=== PATIENT | male | born 1940 | race Caucasian/White ===

== ENCOUNTER 2020-03-09 04:23 | Inpatient (IN) ==
[2020-03-09 05:15] LABS: Hematocrit 24 % (42-52); Hemoglobin 7.5 g/dL (14.0-18.0); Mean Corpuscular HGB Conc 32 g/dL (31-36); Mean Corpuscular Hemoglobin 27 pg (27-31); Mean Corpuscular Volume 85 fL (80-94); Mean Platelet Volume 9.3 fL (7.4-10.4); Platelet Count 237 10^3/uL (150-450); Red Blood Count 2.76 10^6 /uL (4.18-5.48); Red Cell Distribution Width 17 % (10-15); White Blood Count 19.6 10^3/uL (3.5-10.8)
[2020-03-09 05:18] LABS: ABS Basophils 0.1 10^3/ul (0-0.2); ABS Lymphocytes 1.6 10^3/ul (1.0-4.8); ABS Monocytes 2.3 10^3/ul (0-0.8); ABS Neutrophils 15.5 10^3/ul (1.5-7.7); Lymphocyte % 8.3 %
[2020-03-09 05:33] LABS: ALT 18 U/L (7-52); AST 23 U/L (13-39); Albumin 3.1 g/dL (3.2-5.2); Alkaline Phosphatase 66 U/L (34-104); Anion Gap 9 mmol/L (2-11); BUN/Creatinine Ratio 17.2 (8-20); Blood Urea Nitrogen 33 mg/dL (6-24); CO2 Carbon Dioxide 22 mmol/L (22-32); Chloride 104 mmol/L (101-111); EGFR African American 41.1 (>60); Globulin 3.2 g/dL (2-4); Glucose 96 mg/dL (70-100); Magnesium 1.5 mg/dL (1.9-2.7); Potassium 3.9 mmol/L (3.5-5.0); Sodium 135 mmol/L (135-145); Total Protein 6.3 g/dL (6.4-8.9)
[2020-03-09] MEDS ORDERED: Furosemide 40 mg/4 ml IV VIAL IV SLOW PU ONE (05:34)
[2020-03-09 05:37] LABS: Troponin I 0.05 ng/mL (<0.03)
[2020-03-09] MEDS ORDERED: cefTRIAXone 1 gm/50 mL NS BAG 1 GM/50 ML BAG IV ONE (05:39)
[2020-03-09 05:48] LABS: TSH Ultra Thyroid Stim Horm 2.68 mcIU/mL (0.34-5.60)
[2020-03-09] MEDS ORDERED: Diltiazem IV push/loading dose 5 MG/ML 5 ML vial (25 mg) IV SLOW PU ONE ×2 (07:40→09:37)
[2020-03-09] MEDS ORDERED: Diltiazem IV BAG D5W Premix 125 MG/125 ML BAG IV SCH (08:00)
[2020-03-09] MEDS ORDERED: Irbesartan 150 mg TAB (NF) PO SCH (09:00)
[2020-03-09 09:39] LABS: Urine Appearance Clear; Urine Bilirubin Negative (Negative); Urine Blood 2+ (Negative); Urine Color Yellow; Urine Glucose Negative (Negative); Urine Ketones Negative (Negative); Urine Nitrite Negative (Negative); Urine Protein Negative (Negative); Urine Specific Gravity 1.008 (1.010-1.030); Urine Urobilinogen Negative (Negative)
[2020-03-09 09:49] LABS: Urine Bacteria Absent (Absent); Urine Red Blood Cell Trace(0-2/hpf) (Absent); Urine White Blood Cell Trace(0-5/hpf) (Absent)
[2020-03-09 09:56] LABS: Hematocrit 24 % (42-52)
[2020-03-09 10:05] LABS: Urine Color Red
[2020-03-09 10:06] LABS: Urine Appearance Cloudy; Urine Specific Gravity 1.008 (1.010-1.030)
[2020-03-09 10:11] LABS: Urine Bacteria Absent (Absent); Urine Red Blood Cell 3+(>10/hpf) (Absent); Urine White Blood Cell 2+(11-20/hpf) (Absent)
[2020-03-09] MEDS ORDERED: Albuterol HFA INHALER 8 gm MDI INH PRN (14:21)
[2020-03-09 15:10] LABS: Hematocrit 25 % (42-52); Hemoglobin 7.8 g/dL (14.0-18.0); Mean Corpuscular HGB Conc 32 g/dL (31-36); Mean Corpuscular Hemoglobin 27 pg (27-31); Mean Corpuscular Volume 86 fL (80-94); Platelet Count 255 10^3/uL (150-450); Red Blood Count 2.85 10^6 /uL (4.18-5.48); Red Cell Distribution Width 17 % (10-15); White Blood Count 19.4 10^3/uL (3.5-10.8)
[2020-03-09 15:14] LABS: ABS Basophils 0.1 10^3/ul (0-0.2); ABS Lymphocytes 2.2 10^3/ul (1.0-4.8); ABS Monocytes 2.5 10^3/ul (0-0.8); ABS Neutrophils 14.5 10^3/ul (1.5-7.7); Lymphocyte % 11.6 %
[2020-03-09 15:20] LABS: Activated Partial Thrombo Time 31.4 seconds (26.0-38.0); INR 2.07 (0.82-1.09)
[2020-03-09 15:35] LABS: ALT 17 U/L (7-52); AST 24 U/L (13-39); Albumin 3.1 g/dL (3.2-5.2); Alkaline Phosphatase 61 U/L (34-104); Anion Gap 7 mmol/L (2-11); BUN/Creatinine Ratio 18.1 (8-20); Blood Urea Nitrogen 33 mg/dL (6-24); CO2 Carbon Dioxide 25 mmol/L (22-32); Calcium 8.1 mg/dL (8.6-10.3); Chloride 104 mmol/L (101-111); EGFR African American 43.7 (>60); EGFR Non-African American 36.1 (>60); Globulin 3.1 g/dL (2-4); Glucose 93 mg/dL (70-100); Magnesium 1.5 mg/dL (1.9-2.7); Phosphorus 4.8 mg/dL (2.5-5.0); Potassium 4.2 mmol/L (3.5-5.0); Sodium 136 mmol/L (135-145); Total Protein 6.2 g/dL (6.4-8.9)
[2020-03-09 15:44] LABS: Troponin I 0.04 ng/mL (<0.03)
[2020-03-09] MEDS ORDERED: Influenza VAC *QUAD* 2020-21* 0.5 ML SYRINGE IM ONE (18:00)
[2020-03-09] MEDS ORDERED: Furosemide 20 mg/2 ml IV VIAL IV ONE (18:21)
[2020-03-09] MEDS: Diltiazem IV BAG D5W Premix 125 MG/125 ML BAG IV SCH (21:01)
[2020-03-09] MEDS: cefTRIAXone 1 gm/50 mL NS BAG 1 GM/50 ML BAG IVPB SCH ×2 (21:42→21:43)
[2020-03-09] MEDS: Nystatin TOP POWDER 15 GM BTL TOPICAL SCH (21:43)
[2020-03-09] MEDS: DOXYcycline 100 MG in NS 0.9% 250 ml 250 ML IVPB SCH (22:21)
[2020-03-10 00:24] LABS: Hematocrit 24 % (42-52); Hemoglobin 7.6 g/dL (14.0-18.0)
[2020-03-10 05:44] LABS: Hematocrit 23 % (42-52); Hemoglobin 7.5 g/dL (14.0-18.0); Mean Corpuscular HGB Conc 32 g/dL (31-36); Mean Corpuscular Hemoglobin 28 pg (27-31); Mean Corpuscular Volume 87 fL (80-94); Mean Platelet Volume 9.3 fL (7.4-10.4); Platelet Count 228 10^3/uL (150-450); Red Blood Count 2.68 10^6 /uL (4.18-5.48); Red Cell Distribution Width 17 % (10-15); White Blood Count 16.3 10^3/uL (3.5-10.8)
[2020-03-10 06:01] LABS: Albumin 2.7 g/dL (3.2-5.2); Albumin/Globulin Ratio 0.9 (1-3); BUN/Creatinine Ratio 21.3 (8-20); EGFR African American 47.6 (>60); EGFR Non-African American 39.3 (>60); Globulin 3.1 g/dL (2-4); Magnesium 1.5 mg/dL (1.9-2.7); Potassium 4.1 mmol/L (3.5-5.0); Total Bilirubin 0.3 mg/dL (0.2-1.0); Total Protein 5.8 g/dL (6.4-8.9)
[2020-03-10] MEDS ORDERED: Magnesium Sulf 4 GM/100 ML IV 4,000 MG/100 ML BAG IVPB ONE (08:09)
[2020-03-10 08:18] LABS: ABS Basophils 0.1 10^3/ul (0-0.2); ABS Eosinophils 0.1 10^3/ul (0-0.6); ABS Lymphocytes 1.7 10^3/ul (1.0-4.8); ABS Monocytes 2.2 10^3/ul (0-0.8); ABS Neutrophils 12.2 10^3/ul (1.5-7.7); Eosinophil % 0.4 %; Lymphocyte % 10.4 %
[2020-03-10] MEDS: cefTRIAXone 1 gm/50 mL NS BAG 1 GM/50 ML BAG IVPB SCH ×2 (08:35→20:56)
[2020-03-10] MEDS ORDERED: Furosemide 40 mg/4 ml IV VIAL IV ONE (08:36)
[2020-03-10] MEDS: Diltiazem IV BAG D5W Premix 125 MG/125 ML BAG IV SCH (09:08)
[2020-03-10] MEDS: DOXYcycline 100 MG in NS 0.9% 250 ml 250 ML IVPB SCH ×2 (09:12→21:41)
[2020-03-10] MEDS: Nystatin TOP POWDER 15 GM BTL TOPICAL SCH ×3 (09:26→20:58)
[2020-03-10 11:11] LABS: INR 1.74 (0.82-1.09)
[2020-03-10] MEDS ORDERED: fentaNYL 100 mcg/2 ml 50 MCG/ML VIAL ONE (15:23)
[2020-03-10] MEDS ORDERED: Heparin 2 UNITS/ML 1000 mls 1,000 ML IV ONE (15:40)
[2020-03-10] MEDS ORDERED: NS 0.9% 500 ML BAG IV ONE (16:00)
[2020-03-11 05:12] LABS: Hematocrit 24 % (42-52); Hemoglobin 7.8 g/dL (14.0-18.0); Mean Corpuscular HGB Conc 33 g/dL (31-36); Mean Corpuscular Hemoglobin 28 pg (27-31); Mean Corpuscular Volume 86 fL (80-94); Mean Platelet Volume 8.9 fL (7.4-10.4); Platelet Count 258 10^3/uL (150-450); Red Blood Count 2.76 10^6 /uL (4.18-5.48); Red Cell Distribution Width 17 % (10-15); White Blood Count 15.1 10^3/uL (3.5-10.8)
[2020-03-11 05:29] LABS: Albumin 2.7 g/dL (3.2-5.2); Albumin/Globulin Ratio 0.8 (1-3); BUN/Creatinine Ratio 22.2 (8-20); Calcium 7.9 mg/dL (8.6-10.3); EGFR African American 45.4 (>60); EGFR Non-African American 37.5 (>60); Globulin 3.2 g/dL (2-4); Magnesium 1.9 mg/dL (1.9-2.7); Potassium 4.1 mmol/L (3.5-5.0); Total Bilirubin 0.3 mg/dL (0.2-1.0); Total Protein 5.9 g/dL (6.4-8.9)
[2020-03-11 06:39] LABS: ABS Basophils 0.2 10^3/ul (0-0.2); ABS Eosinophils 0.2 10^3/ul (0-0.6); ABS Lymphocytes 1.6 10^3/ul (1.0-4.8); ABS Monocytes 1.4 10^3/ul (0-0.8); ABS Neutrophils 11.7 10^3/ul (1.5-7.7); Eosinophil % 1.3 %; Lymphocyte % 10.6 %
[2020-03-11] MEDS: cefTRIAXone 1 gm/50 mL NS BAG 1 GM/50 ML BAG IVPB SCH (09:14)
[2020-03-11] MEDS: Nystatin TOP POWDER 15 GM BTL TOPICAL SCH ×3 (09:20→21:16)
[2020-03-11 18:32] LABS: Body Fluid Source Pleural Fluid
[2020-03-11 19:35] LABS: Body Fluid Mono 54 %; Body Fluid Other Cells 49
[2020-03-11] MEDS ORDERED: Polyethylene Glycol 3350 17 GM PACKET PO PRN (21:36)
[2020-03-11] MEDS ORDERED: Magnesium Hydroxide LIQ 30 ML UDC PO PRN (21:36)
[2020-03-12 07:07] LABS: ABS Eosinophils 0.2 10^3/ul (0-0.6); ABS Lymphocytes 1.1 10^3/ul (1.0-4.8); ABS Neutrophils 7.3 10^3/ul (1.5-7.7); Eosinophil % 2.3 %; Hematocrit 22 % (42-52); Hemoglobin 7.4 g/dL (14.0-18.0); Lymphocyte % 11.7 %; Mean Corpuscular HGB Conc 34 g/dL (31-36); Mean Corpuscular Hemoglobin 29 pg (27-31); Mean Corpuscular Volume 85 fL (80-94); Mean Platelet Volume 8.9 fL (7.4-10.4); Platelet Count 228 10^3/uL (150-450); Red Blood Count 2.58 10^6 /uL (4.18-5.48); Red Cell Distribution Width 16 % (10-15); White Blood Count 9.7 10^3/uL (3.5-10.8)
[2020-03-12 07:26] LABS: Albumin 2.5 g/dL (3.2-5.2); Albumin/Globulin Ratio 0.8 (1-3); BUN/Creatinine Ratio 25.3 (8-20); Calcium 8.2 mg/dL (8.6-10.3); EGFR African American 47.3 (>60); EGFR Non-African American 39.1 (>60); Globulin 3.1 g/dL (2-4); Magnesium 1.7 mg/dL (1.9-2.7); Potassium 3.9 mmol/L (3.5-5.0); Total Bilirubin 0.3 mg/dL (0.2-1.0); Total Protein 5.6 g/dL (6.4-8.9)
[2020-03-12] MEDS: Magnesium Hydroxide LIQ 30 ML UDC PO SCH ×2 (09:27→20:36)
[2020-03-12] MEDS: Nystatin TOP POWDER 15 GM BTL TOPICAL SCH ×3 (09:33→20:37)
[2020-03-12] MEDS ORDERED: KCL 10 MEQ/100 ML IVPREMIX 100 ml BAG IVPB ONE (12:51)
[2020-03-12] MEDS ORDERED: KCL premix 10 MEQ/50 ML x 1 TIME IV ONE (13:00)
[2020-03-12] MEDS ORDERED: Metoprolol Tartrate 5 mg VIAL 5 ml VIAL (1 mg/ml) IV ONE (20:28)
[2020-03-12] MEDS: Senna TAB 8.6 mg TAB PO PRN (20:36)
[2020-03-13] MEDS: Magnesium Hydroxide LIQ 30 ML UDC PO SCH (08:03)
[2020-03-13] MEDS: Nystatin TOP POWDER 15 GM BTL TOPICAL SCH ×3 (08:03→21:06)
[2020-03-13 09:07] LABS: ABS Basophils 0.1 10^3/ul (0-0.2); ABS Eosinophils 0.3 10^3/ul (0-0.6); ABS Lymphocytes 1.4 10^3/ul (1.0-4.8); ABS Monocytes 0.9 10^3/ul (0-0.8); ABS Neutrophils 6.3 10^3/ul (1.5-7.7); Eosinophil % 2.8 %; Hematocrit 24 % (42-52); Hemoglobin 7.8 g/dL (14.0-18.0); Lymphocyte % 15.5 %; Mean Corpuscular HGB Conc 32 g/dL (31-36); Mean Corpuscular Hemoglobin 28 pg (27-31); Mean Corpuscular Volume 86 fL (80-94); Mean Platelet Volume 8.1 fL (7.4-10.4); Platelet Count 281 10^3/uL (150-450); Red Blood Count 2.82 10^6 /uL (4.18-5.48); Red Cell Distribution Width 17 % (10-15); White Blood Count 8.9 10^3/uL (3.5-10.8)
[2020-03-13 09:26] LABS: ALT 13 U/L (7-52); AST 19 U/L (13-39); Albumin 2.8 g/dL (3.2-5.2); Albumin/Globulin Ratio 0.9 (1-3); Alkaline Phosphatase 63 U/L (34-104); Anion Gap 4 mmol/L (2-11); BUN/Creatinine Ratio 28.2 (8-20); Blood Urea Nitrogen 40 mg/dL (6-24); CO2 Carbon Dioxide 29 mmol/L (22-32); Calcium 8.7 mg/dL (8.6-10.3); Chloride 105 mmol/L (101-111); EGFR African American 58.2 (>60); EGFR Non-African American 48.1 (>60); Globulin 3.2 g/dL (2-4); Glucose 108 mg/dL (70-100); Magnesium 1.7 mg/dL (1.9-2.7); Sodium 138 mmol/L (135-145)
[2020-03-13] MEDS ORDERED: Magnesium Sulfate 2 gm BAG 2 GM/50 ML BAG IVPB ONE (10:38)
[2020-03-13 15:49] LABS: Fluid Type, Glucose PLEURAL; Glucose, BF 106 mg/dL
[2020-03-13 15:50] LABS: Fluid Type, Amylase PLEURAL
[2020-03-13 15:53] LABS: Lactate Dehydrogenase, BF 117 U/L
[2020-03-13 16:07] LABS: Fluid Type, Protein, Total PLEURAL
[2020-03-13 17:16] LABS: Total Iron Binding Capacity 258 mcg/dL (250-450); Transferrin 184 mg/dL (203-362)
[2020-03-13 17:38] LABS: Ferritin 64.4 ng/mL (24-336)
[2020-03-13 17:41] LABS: Folate 6.26 ng/mL (>3.99)
[2020-03-13 17:42] LABS: Vitamin B12 494 pg/mL (180-914)
[2020-03-13 17:46] LABS: % Iron Saturation 8 % (15-55); Iron < 20 ug/dL (50-212); Unsaturated Iron Binding < 243 ug/dL
[2020-03-13] MEDS: Albuterol/Ipratropium NEB.SOL (2.5/0.5 MG) 3 ML NEB.SOLN INH SCH ×2 (19:21→23:36)
[2020-03-13] MEDS: Senna TAB 8.6 mg TAB PO PRN (21:04)
[2020-03-14] MEDS: Albuterol/Ipratropium NEB.SOL (2.5/0.5 MG) 3 ML NEB.SOLN INH SCH ×2 (03:13→08:07)
[2020-03-14 05:48] LABS: ABS Eosinophils 0.3 10^3/ul (0-0.6); ABS Lymphocytes 1.6 10^3/ul (1.0-4.8); ABS Neutrophils 6.5 10^3/ul (1.5-7.7); Hematocrit 23 % (42-52); Hemoglobin 7.6 g/dL (14.0-18.0); Lymphocyte % 16.8 %; Mean Corpuscular HGB Conc 33 g/dL (31-36); Mean Corpuscular Hemoglobin 28 pg (27-31); Mean Corpuscular Volume 85 fL (80-94); Mean Platelet Volume 7.9 fL (7.4-10.4); Platelet Count 261 10^3/uL (150-450); Red Blood Count 2.71 10^6 /uL (4.18-5.48); Red Cell Distribution Width 17 % (10-15); White Blood Count 9.4 10^3/uL (3.5-10.8)
[2020-03-14 06:10] LABS: Albumin 2.7 g/dL (3.2-5.2); Albumin/Globulin Ratio 0.8 (1-3); BUN/Creatinine Ratio 30.5 (8-20); Calcium 8.2 mg/dL (8.6-10.3); EGFR African American 63.9 (>60); EGFR Non-African American 52.8 (>60); Globulin 3.2 g/dL (2-4); Magnesium 1.9 mg/dL (1.9-2.7); Potassium 4.7 mmol/L (3.5-5.0); Total Bilirubin 0.3 mg/dL (0.2-1.0); Total Protein 5.9 g/dL (6.4-8.9)
[2020-03-14] MEDS ORDERED: Albuterol/Ipratropium NEB.SOL (2.5/0.5 MG) 3 ML NEB.SOLN INH PRN ×2 (08:08→09:29)
[2020-03-14] MEDS: Nystatin TOP POWDER 15 GM BTL TOPICAL SCH ×3 (08:49→20:02)
[2020-03-14] MEDS ORDERED: Iron Sucrose 200 MG in NS 0.9% 100 ml BAG 100 ML IVPB ONE (14:00)
[2020-03-15] MEDS ORDERED: Metoprolol Tartrate 5 mg VIAL 5 ml VIAL (1 mg/ml) IV ONE (03:19)
[2020-03-15 07:11] LABS: Calcium 8.4 mg/dL (8.6-10.3); EGFR African American 63.9 (>60); EGFR Non-African American 52.8 (>60); Potassium 4.5 mmol/L (3.5-5.0)
[2020-03-15] MEDS ORDERED: Iron Sucrose 200 MG in NS 0.9% 100 ml BAG 100 ML IVPB ONE (08:00)
[2020-03-15] MEDS: Nystatin TOP POWDER 15 GM BTL TOPICAL SCH ×3 (08:34→20:41)
[2020-03-15 11:39] LABS: Fluid Type: PLEURAL
[2020-03-16 06:28] LABS: ABS Basophils 0.1 10^3/ul (0-0.2); ABS Eosinophils 0.2 10^3/ul (0-0.6); ABS Lymphocytes 2.2 10^3/ul (1.0-4.8); ABS Monocytes 1.2 10^3/ul (0-0.8); ABS Neutrophils 7.6 10^3/ul (1.5-7.7); Eosinophil % 2.1 %; Hematocrit 24 % (42-52); Hemoglobin 7.8 g/dL (14.0-18.0); Lymphocyte % 19.3 %; Mean Corpuscular HGB Conc 33 g/dL (31-36); Mean Corpuscular Hemoglobin 28 pg (27-31); Mean Corpuscular Volume 86 fL (80-94); Mean Platelet Volume 8.2 fL (7.4-10.4); Platelet Count 275 10^3/uL (150-450); Red Blood Count 2.73 10^6 /uL (4.18-5.48); Red Cell Distribution Width 17 % (10-15); White Blood Count 11.3 10^3/uL (3.5-10.8)
[2020-03-16 06:47] LABS: BUN/Creatinine Ratio 27.9 (8-20); Calcium 8.6 mg/dL (8.6-10.3); EGFR Non-African American 53.7 (>60); Potassium 4.5 mmol/L (3.5-5.0)
[2020-03-16] MEDS ORDERED: Metoprolol Tartrate 5 mg VIAL 5 ml VIAL (1 mg/ml) IV ONE ×2 (07:52→17:22)
[2020-03-16] MEDS: Nystatin TOP POWDER 15 GM BTL TOPICAL SCH ×3 (08:30→19:47)
[2020-03-17 06:25] LABS: Hematocrit 23 % (42-52); Hemoglobin 7.4 g/dL (14.0-18.0); Mean Corpuscular HGB Conc 32 g/dL (31-36); Mean Corpuscular Hemoglobin 28 pg (27-31); Mean Corpuscular Volume 87 fL (80-94); Mean Platelet Volume 8.1 fL (7.4-10.4); Platelet Count 279 10^3/uL (150-450); Red Blood Count 2.66 10^6 /uL (4.18-5.48); Red Cell Distribution Width 16 % (10-15); White Blood Count 12.9 10^3/uL (3.5-10.8)
[2020-03-17 06:36] LABS: Calcium 8.8 mg/dL (8.6-10.3); Potassium 4.9 mmol/L (3.5-5.0)
[2020-03-17 06:41] LABS: BUN/Creatinine Ratio 30.6 (8-20); EGFR African American 62.2 (>60); EGFR Non-African American 51.4 (>60)
[2020-03-17 06:43] LABS: ABS Basophils 0.1 10^3/ul (0-0.2); ABS Eosinophils 0.2 10^3/ul (0-0.6); ABS Lymphocytes 2.2 10^3/ul (1.0-4.8); ABS Monocytes 1.3 10^3/ul (0-0.8); ABS Neutrophils 8.6 10^3/ul (1.5-7.7); Eosinophil % 1.3 %; Lymphocyte % 17.9 %
[2020-03-17] MEDS: Nystatin TOP POWDER 15 GM BTL TOPICAL SCH ×3 (07:50→19:34)
[2020-03-17] MEDS: Metoprolol Tartrate 5 mg VIAL 5 ml VIAL (1 mg/ml) IV PRN ×2 (17:39→19:33)
[2020-03-18] MEDS: Metoprolol Tartrate 5 mg VIAL 5 ml VIAL (1 mg/ml) IV PRN (04:04)
[2020-03-18] MEDS: Nystatin TOP POWDER 15 GM BTL TOPICAL SCH ×3 (08:18→20:43)
[2020-03-18 11:51] LABS: Hematocrit 24 % (42-52); Hemoglobin 7.7 g/dL (14.0-18.0); Mean Corpuscular HGB Conc 32 g/dL (31-36); Mean Corpuscular Hemoglobin 28 pg (27-31); Mean Corpuscular Volume 87 fL (80-94); Mean Platelet Volume 8.1 fL (7.4-10.4); Platelet Count 332 10^3/uL (150-450); Red Blood Count 2.76 10^6 /uL (4.18-5.48); Red Cell Distribution Width 16 % (10-15); White Blood Count 15.7 10^3/uL (3.5-10.8)
[2020-03-18 12:10] LABS: BUN/Creatinine Ratio 29.9 (8-20); C Reactive Protein 67.77 mg/L (<8.01); Calcium 8.5 mg/dL (8.6-10.3); EGFR African American 57.3 (>60); EGFR Non-African American 47.3 (>60)
[2020-03-18 12:18] LABS: Potassium 5.3 mmol/L (3.5-5.0)
[2020-03-18 13:09] LABS: ABS Basophils 0.1 10^3/ul (0-0.2); ABS Lymphocytes 2.5 10^3/ul (1.0-4.8); ABS Monocytes 1.7 10^3/ul (0-0.8); ABS Neutrophils 11.4 10^3/ul (1.5-7.7); Eosinophil % 0.1 %; Lymphocyte % 16.2 %; Nucleated Red Blood Cells % 0.1
[2020-03-18] MEDS ORDERED: Furosemide 40 mg/4 ml IV VIAL IV ONE (16:40)
[2020-03-18] MEDS ORDERED: NS 0.9% 250 ml 250 ML IV ONE (18:20)
[2020-03-18] MEDS ORDERED: Meropenem 1 GM PREMIX 1 GM/50 ML BAG IV SCH ×2 (20:00→22:00)
[2020-03-19 00:57] LABS: Urine Appearance Cloudy; Urine Bilirubin Negative (Negative); Urine Blood 3+ (Negative); Urine Color Yellow; Urine Glucose Negative (Negative); Urine Ketones Negative (Negative); Urine Nitrite Negative (Negative); Urine Protein 1+(30 mg/dL) (Negative); Urine Specific Gravity 1.009 (1.010-1.030); Urine Urobilinogen Negative (Negative)
[2020-03-19 01:33] LABS: Urine Bacteria 1+ (Absent); Urine Red Blood Cell 3+(>10/hpf) (Absent); Urine White Blood Cell 3+(>20/hpf) (Absent)
[2020-03-19] MEDS: Meropenem 1 GM PREMIX 1 GM/50 ML BAG IV SCH ×3 (01:33→17:34)
[2020-03-19 05:57] LABS: Hematocrit 25 % (42-52); Hemoglobin 8.3 g/dL (14.0-18.0); Mean Corpuscular HGB Conc 33 g/dL (31-36); Mean Corpuscular Hemoglobin 28 pg (27-31); Mean Corpuscular Volume 86 fL (80-94); Mean Platelet Volume 8.3 fL (7.4-10.4); Platelet Count 296 10^3/uL (150-450); Red Blood Count 2.93 10^6 /uL (4.18-5.48); Red Cell Distribution Width 17 % (10-15); White Blood Count 14.9 10^3/uL (3.5-10.8)
[2020-03-19 06:15] LABS: BUN/Creatinine Ratio 28.3 (8-20); C Reactive Protein 82.12 mg/L (<8.01); Calcium 8.6 mg/dL (8.6-10.3); EGFR African American 44.3 (>60); EGFR Non-African American 36.6 (>60); Magnesium 1.3 mg/dL (1.9-2.7)
[2020-03-19 06:18] LABS: Potassium 5.3 mmol/L (3.5-5.0)
[2020-03-19 07:17] LABS: ABS Lymphocytes 2.3 10^3/ul (1.0-4.8); ABS Monocytes 1.8 10^3/ul (0-0.8); ABS Neutrophils 10.7 10^3/ul (1.5-7.7); Eosinophil % 0.1 %; Lymphocyte % 15.4 %; Nucleated Red Blood Cells % 0.1
[2020-03-19] MEDS: Nystatin TOP POWDER 15 GM BTL TOPICAL SCH ×3 (08:36→20:45)
[2020-03-19] MEDS ORDERED: Magnesium Sulf 4 GM/100 ML IV 4,000 MG/100 ML BAG IVPB ONE (14:30)
[2020-03-20] MEDS: Meropenem 1 GM PREMIX 1 GM/50 ML BAG IV SCH ×3 (01:33→21:23)
[2020-03-20 07:49] LABS: BUN/Creatinine Ratio 28.9 (8-20); Calcium 8.8 mg/dL (8.6-10.3); EGFR African American 41.6 (>60); EGFR Non-African American 34.4 (>60); Magnesium 1.9 mg/dL (1.9-2.7)
[2020-03-20 07:55] LABS: Potassium 5.5 mmol/L (3.5-5.0)
[2020-03-20 08:07] LABS: ABS Eosinophils 0.1 10^3/ul (0-0.6); ABS Monocytes 1.6 10^3/ul (0-0.8); ABS Neutrophils 9.2 10^3/ul (1.5-7.7); Eosinophil % 0.8 %; Hematocrit 27 % (42-52); Hemoglobin 8.6 g/dL (14.0-18.0); Lymphocyte % 15.1 %; Mean Corpuscular HGB Conc 33 g/dL (31-36); Mean Corpuscular Hemoglobin 29 pg (27-31); Mean Corpuscular Volume 88 fL (80-94); Mean Platelet Volume 8.9 fL (7.4-10.4); Nucleated Red Blood Cells % 0.1; Platelet Count 280 10^3/uL (150-450); Red Blood Count 3.04 10^6 /uL (4.18-5.48); Red Cell Distribution Width 17 % (10-15); White Blood Count 12.9 10^3/uL (3.5-10.8)
[2020-03-20] MEDS ORDERED: Sodium Polystyrene ORAL.SUSP 15 GM/60 ML BTL PO ONE (08:33)
[2020-03-20] MEDS: Nystatin TOP POWDER 15 GM BTL TOPICAL SCH ×3 (09:21→21:38)
[2020-03-20] MEDS ORDERED: Iron Sucrose 20 MG/ML 5 ML VIAL IV PUSH ONE (11:31)
[2020-03-20] MEDS ORDERED: Iron Sucrose 200 MG in NS 0.9% 100 ml IVPB ONE (12:00)
[2020-03-20] MEDS: Heparin 5000 UNITS/ML 1 mL VIAL SUBCUT SCH ×2 (13:11→21:23)
[2020-03-20 15:33] LABS: BUN/Creatinine Ratio 29.4 (8-20); EGFR African American 42.4 (>60)
[2020-03-20 15:35] LABS: Potassium 5.2 mmol/L (3.5-5.0)
[2020-03-21 05:57] LABS: Hematocrit 26 % (42-52); Hemoglobin 8.5 g/dL (14.0-18.0); Mean Corpuscular HGB Conc 33 g/dL (31-36); Mean Corpuscular Hemoglobin 28 pg (27-31); Mean Corpuscular Volume 86 fL (80-94); Mean Platelet Volume 8.6 fL (7.4-10.4); Platelet Count 295 10^3/uL (150-450); Red Blood Count 2.99 10^6 /uL (4.18-5.48); Red Cell Distribution Width 16 % (10-15); White Blood Count 13.5 10^3/uL (3.5-10.8)
[2020-03-21] MEDS: Heparin 5000 UNITS/ML 1 mL VIAL SUBCUT SCH (06:11)
[2020-03-21 06:15] LABS: BUN/Creatinine Ratio 30.5 (8-20); Calcium 8.9 mg/dL (8.6-10.3); EGFR African American 49.3 (>60); EGFR Non-African American 40.7 (>60); Potassium 4.9 mmol/L (3.5-5.0)
[2020-03-21] MEDS: Meropenem 1 GM PREMIX 1 GM/50 ML BAG IV SCH ×2 (08:47→21:21)
[2020-03-21] MEDS ORDERED: Iron Sucrose 200 MG in NS 0.9% 100 ml BAG 100 ML IVPB ONE (08:56)
[2020-03-21] MEDS ORDERED: Furosemide 40 mg/4 ml IV VIAL IV SCH (12:00)
[2020-03-21] MEDS: Nystatin TOP POWDER 15 GM BTL TOPICAL SCH ×2 (15:13→21:20)
[2020-03-22 07:08] LABS: BUN/Creatinine Ratio 28.6 (8-20); Calcium 8.4 mg/dL (8.6-10.3); EGFR Non-African American 43.8 (>60); Magnesium 1.5 mg/dL (1.9-2.7); Potassium 4.6 mmol/L (3.5-5.0)
[2020-03-22] MEDS: Nystatin TOP POWDER 15 GM BTL TOPICAL SCH ×2 (09:20→15:00)
[2020-03-22] MEDS: Meropenem 1 GM PREMIX 1 GM/50 ML BAG IV SCH ×2 (09:20→21:03)
[2020-03-22] MEDS ORDERED: Furosemide 40 mg/4 ml IV VIAL IV SLOW PU ONE (14:47)
[2020-03-23 08:04] LABS: Hematocrit 26 % (42-52); Hemoglobin 8.5 g/dL (14.0-18.0); Mean Corpuscular HGB Conc 33 g/dL (31-36); Mean Corpuscular Hemoglobin 29 pg (27-31); Mean Corpuscular Volume 88 fL (80-94); Mean Platelet Volume 8.8 fL (7.4-10.4); Platelet Count 244 10^3/uL (150-450); Red Blood Count 2.97 10^6 /uL (4.18-5.48); Red Cell Distribution Width 17 % (10-15); White Blood Count 12.3 10^3/uL (3.5-10.8)
[2020-03-23 08:22] LABS: BUN/Creatinine Ratio 29.9 (8-20); Calcium 8.4 mg/dL (8.6-10.3); EGFR African American 62.2 (>60); EGFR Non-African American 51.4 (>60); Magnesium 1.4 mg/dL (1.9-2.7); Potassium 4.4 mmol/L (3.5-5.0)
[2020-03-23] MEDS: Meropenem 1 GM PREMIX 1 GM/50 ML BAG IV SCH ×2 (08:41→21:12)
[2020-03-23 09:14] LABS: ABS Basophils 0.1 10^3/ul (0-0.2); ABS Eosinophils 0.1 10^3/ul (0-0.6); ABS Monocytes 1.6 10^3/ul (0-0.8); ABS Neutrophils 8.5 10^3/ul (1.5-7.7); Lymphocyte % 16.3 %
[2020-03-23] MEDS ORDERED: Furosemide 40 mg/4 ml IV VIAL IV SLOW PU ONE (13:04)
[2020-03-24 06:11] LABS: Hematocrit 28 % (42-52); Hemoglobin 8.9 g/dL (14.0-18.0); Mean Corpuscular HGB Conc 32 g/dL (31-36); Mean Corpuscular Hemoglobin 28 pg (27-31); Mean Corpuscular Volume 88 fL (80-94); Mean Platelet Volume 8.7 fL (7.4-10.4); Platelet Count 258 10^3/uL (150-450); Red Blood Count 3.13 10^6 /uL (4.18-5.48); Red Cell Distribution Width 17 % (10-15)
[2020-03-24 06:13] LABS: ABS Basophils 0.1 10^3/ul (0-0.2); ABS Eosinophils 0.1 10^3/ul (0-0.6); ABS Lymphocytes 1.7 10^3/ul (1.0-4.8); ABS Monocytes 1.7 10^3/ul (0-0.8); ABS Neutrophils 9.4 10^3/ul (1.5-7.7); Lymphocyte % 13.4 %; Nucleated Red Blood Cells % 0.1
[2020-03-24 06:26] LABS: BUN/Creatinine Ratio 28.7 (8-20); Calcium 8.9 mg/dL (8.6-10.3); EGFR Non-African American 53.7 (>60); Magnesium 1.3 mg/dL (1.9-2.7); Potassium 4.4 mmol/L (3.5-5.0)
[2020-03-24] MEDS: Meropenem 1 GM PREMIX 1 GM/50 ML BAG IV SCH ×2 (07:22→21:31)
[2020-03-24] MEDS ORDERED: Magnesium Sulf 4 GM/100 ML IV 4,000 MG/100 ML BAG IVPB ONE (18:28)
[2020-03-24] MEDS: acetaZOLAMIDE IV 500 MG in NS 0.9% 50 ML 50 ML IVPB SCH (19:43)
[2020-03-25 06:32] LABS: Hematocrit 28 % (42-52); Hemoglobin 8.9 g/dL (14.0-18.0); Mean Corpuscular HGB Conc 32 g/dL (31-36); Mean Corpuscular Hemoglobin 29 pg (27-31); Mean Corpuscular Volume 89 fL (80-94); Mean Platelet Volume 9.2 fL (7.4-10.4); Platelet Count 253 10^3/uL (150-450); Red Blood Count 3.13 10^6 /uL (4.18-5.48); Red Cell Distribution Width 17 % (10-15); White Blood Count 15.4 10^3/uL (3.5-10.8)
[2020-03-25 06:34] LABS: ABS Basophils 0.1 10^3/ul (0-0.2); ABS Eosinophils 0.2 10^3/ul (0-0.6); ABS Lymphocytes 1.8 10^3/ul (1.0-4.8); ABS Monocytes 2.1 10^3/ul (0-0.8); ABS Neutrophils 11.3 10^3/ul (1.5-7.7); Lymphocyte % 11.9 %
[2020-03-25 06:44] LABS: BUN/Creatinine Ratio 31.3 (8-20); Blood Urea Nitrogen 35 mg/dL (6-24); CO2 Carbon Dioxide 39 mmol/L (22-32); CRP High Sensitivity 78.26 mg/L (<2.00); Calcium 8.8 mg/dL (8.6-10.3); Chloride 97 mmol/L (101-111); EGFR African American 76.5 (>60); EGFR Non-African American 63.2 (>60); Glucose 95 mg/dL (70-100); Sodium 139 mmol/L (135-145)
[2020-03-25 06:48] LABS: Anion Gap 3 mmol/L (2-11)
[2020-03-25 08:17] LABS: Potassium Redraw 4.4 mmol/L (3.5-5.0)
[2020-03-25 08:49] LABS: Magnesium 1.9 mg/dL (1.9-2.7)
[2020-03-25] MEDS: Meropenem 1 GM PREMIX 1 GM/50 ML BAG IV SCH ×2 (09:03→20:58)
[2020-03-25] MEDS: acetaZOLAMIDE IV 500 MG in NS 0.9% 50 ML 50 ML IVPB SCH (09:59)
[2020-03-26 08:35] LABS: Hematocrit 27 % (42-52); Hemoglobin 8.5 g/dL (14.0-18.0); Mean Corpuscular HGB Conc 32 g/dL (31-36); Mean Corpuscular Hemoglobin 28 pg (27-31); Mean Corpuscular Volume 88 fL (80-94); Mean Platelet Volume 8.8 fL (7.4-10.4); Platelet Count 236 10^3/uL (150-450); Red Blood Count 3.02 10^6 /uL (4.18-5.48); Red Cell Distribution Width 17 % (10-15); White Blood Count 16.3 10^3/uL (3.5-10.8)
[2020-03-26 08:43] LABS: BUN/Creatinine Ratio 33.3 (8-20); Calcium 8.6 mg/dL (8.6-10.3); EGFR African American 94.8 (>60); EGFR Non-African American 78.4 (>60); Potassium 3.9 mmol/L (3.5-5.0)
[2020-03-26 08:44] LABS: C Reactive Protein 133.23 mg/L (<8.01); Magnesium 1.6 mg/dL (1.9-2.7)
[2020-03-26 09:17] LABS: ABS Basophils 0.1 10^3/ul (0-0.2); ABS Lymphocytes 1.4 10^3/ul (1.0-4.8); ABS Monocytes 2.3 10^3/ul (0-0.8); ABS Neutrophils 12.5 10^3/ul (1.5-7.7); Eosinophil % 0.2 %; Lymphocyte % 8.8 %
[2020-03-26] MEDS: acetaZOLAMIDE IV 500 MG in NS 0.9% 50 ML 50 ML IVPB SCH (09:20)
[2020-03-26] MEDS: Meropenem 1 GM PREMIX 1 GM/50 ML BAG IV SCH (09:55)
[2020-03-26 12:07] LABS: C Reactive Protein 71.41 mg/L (<8.01)
[2020-03-26] MEDS ORDERED: Magnesium Sulfate 2 gm BAG 2 GM/50 ML BAG IVPB ONE (12:59)
[2020-03-28 06:44] LABS: BUN/Creatinine Ratio 40.9 (8-20); C Reactive Protein 169.65 mg/L (<8.01); Calcium 8.5 mg/dL (8.6-10.3); EGFR African American 101.1 (>60); EGFR Non-African American 83.5 (>60); Potassium 3.8 mmol/L (3.5-5.0)
[2020-03-28 06:55] LABS: ABS Basophils 0.1 10^3/ul (0-0.2); ABS Lymphocytes 1.9 10^3/ul (1.0-4.8); ABS Monocytes 1.9 10^3/ul (0-0.8); ABS Neutrophils 9.7 10^3/ul (1.5-7.7); Eosinophil % 0.3 %; Hematocrit 27 % (42-52); Hemoglobin 8.5 g/dL (14.0-18.0); Lymphocyte % 13.8 %; Mean Corpuscular HGB Conc 32 g/dL (31-36); Mean Corpuscular Hemoglobin 28 pg (27-31); Mean Corpuscular Volume 89 fL (80-94); Mean Platelet Volume 9.5 fL (7.4-10.4); Platelet Count 238 10^3/uL (150-450); Red Blood Count 3.01 10^6 /uL (4.18-5.48); Red Cell Distribution Width 18 % (10-15); White Blood Count 13.6 10^3/uL (3.5-10.8)
[2020-03-29] MEDS ORDERED: Furosemide 40 mg/4 ml IV VIAL IV SLOW PU ONE (09:18)
[2020-03-29 11:02] VITALS: BP 134/60
== END 2020-03-29 14:30 | DRG 871 ==
LOC: ED 04:23 → ICU 13:53 → MEDTELE 03-12 14:37
PROVIDERS: ADMIT Internal Medicine; ATTEND Student in an Organized Health Care Education/Training Program